=== PATIENT | male | born 2000 | race Hispanic/Latino ===

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

== ENCOUNTER 2019-01-14 19:07 | Inpatient (IN) | payer OTHER ==
[~2019-01-14] VITALS: Ht 165.1 cm; Wt 59.1 kg
[~2019-01-14 19:07] MED LIST changes: +TRAZ1TAB10 PO; -TRAZO50TA PO
[2019-01-14 20:20] LABS: HEMATOCRIT 46.2 % (42.0-52.0); HEMOGLOBIN 15.3 g/dl (13.5-17.5); MEAN CORPUSCULAR HEMOGLOBIN 30.7 pg (27.0-33.0); MEAN CORPUSCULAR HGB CONC 33.1 g/dl (32.0-36.5); MEAN CORPUSCULAR VOLUME 92.8 fl (80.0-96.0); PLATELET COUNT, AUTOMATED 247 10^3/uL (150-450); RED BLOOD COUNT 4.98 10^6/uL (4.30-6.10); WHITE BLOOD COUNT 6.1 10^3/uL (4.0-10.0)
[2019-01-14 20:39] LABS: AMPHETAMINES LEVEL URINE NEGATIVE (NEGATIVE); BARBITURATES URINE NEGATIVE (NEGATIVE); BENZODIAZEPINES URINE NEGATIVE (NEGATIVE); CANNABINOIDS URINE NEGATIVE (NEGATIVE); COCAINE METABOLITE URINE NEGATIVE (NEGATIVE); METHADONE URINE NEGATIVE (NEGATIVE); OPIATES URINE NEGATIVE (NEGATIVE); PHENCYCLIDINE URINE NEGATIVE (NEGATIVE)
[2019-01-14 20:51] LABS: ACETAMINOPHEN LEVEL < 2.0 UG/ML (10.0-30.0); ALBUMIN 4.2 GM/DL (3.2-5.2); ALT/SGPT 64 U/L (12-78); BILIRUBIN,DIRECT 0.3 MG/DL (0.0-0.2); BLOOD UREA NITROGEN 10 MG/DL (7-18); CALCIUM LEVEL 9.1 MG/DL (8.5-10.1); CARBON DIOXIDE LEVEL 26 MEQ/L (21-32); CHLORIDE LEVEL 109 MEQ/L (98-107); CREATININE FOR GFR 0.91 MG/DL (0.70-1.30); ETHYL ALCOHOL (ETHANOL) < 0.003 % (0.000-0.010); GLUCOSE, FASTING 76 MG/DL (70-100); POTASSIUM SERUM 4.3 MEQ/L (3.5-5.1); SALICYLATE LEVEL < 1.7 MG/DL (5.0-30.0); SODIUM LEVEL 141 MEQ/L (136-145); THYROID STIMULATING HORMONE 0.944 uIU/ML (0.463-3.98); TOTAL PROTEIN 7.2 GM/DL (6.4-8.2)
[2019-01-14] MEDS ORDERED: ACETAMINOPHEN TAB 650MG DOSE (2X325MG) PO PRN (21:45)
[2019-01-14] MEDS ORDERED: MOM 30ML SUSPENSION UDC PO PRN (21:45)
[2019-01-14] MEDS ORDERED: traZODone 50 MG TAB PO PRN (21:45)
[2019-01-14] MEDS ORDERED: MAALOX 30 ML SUSP *UDC PO PRN (21:45)
[2019-01-15 00:38] VITALS: BP 126/79
[2019-01-15 06:30] VITALS: BP 130/76
[2019-01-15] MEDS ORDERED: INFLUENZA QUADRIVALENT PF VACCINE 0.5ML SYRINGE (90686) IM ONE (09:00)
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
[2019-01-15 16:13] VITALS: BP 117/63
--- NOTE | 2019-01-15 20:09 | HPEPDOC ---
General Date of Admission Jan 14, 2019 at 21:32 Date of Service: Jan 15, 2019 Attending Physician: MESFIN DE OLIVEIRA MD Chief Complaint The patient is a 18-year-old male admitted with a reason for visit of Adjustment D/O. Source: Patient Exam Limitations: No limitations Timing/Duration: Week(s) Associated Symptoms: Other (Depressed mood with self harm behavior and SI) History of Present Illness 18 yo man, member of the with a history of depression and prior suicide attempts since the age of 14yo who presented to the ED with suicidal ideation with recent self harm behavior 2 weeks ago of cutting in the setting of recent break up and the relocation of the ex-significant other. He reports chronic SI that sometimes improves and sometimes worsens. He otherwise has no significant medical history and is physically healthy without complaints at this time. Home Medications No Active Prescriptions or Reported Meds Allergies Coded Allergies: No Known Allergies (Unverified , 01/14/19) Past Medical History Medical History Depression Family History Significant Family History: No pertinent family hx Social History * Smoker: non-smoker Alcohol: Denies Drugs: denies Recent Travel/Sick Contacts: Denies: Recent travel, Recent sick contacts A-FIB/CHADSVASC A-FIB History Current/History of A-Fib/PAF?: No Current PO Anticoag Therapy: No Age/Risk Factor Scoring CHADSVASC: CHADSVASC Response (Comments) Value Age Risk Factor Age < 65 years old 0 Gender Risk Factor Male 0 Hx of CHF No 0 Hx of HTN No 0 Hx of Stroke/TIA/or VTE No 0 Hx of Diabetes No 0 Hx of Vascular Disease No 0 Total 0 Treatment Treatment ordered: NONE Reason Anticoagulant not given: Not indicated/[id number] Review of Systems Constitutional: Denies: Chills, Fever, Night Sweats Eyes: Denies: Pain, Vision change ENT: Denies: Head Aches, Ear Pain, Dysphagia, Sinus Congestion, Post Nasal Drip , Sore Throat, Epistaxis, Other Symptoms Skin: Denies: Rash, Lesions, Breakdown Pulmonary: Denies: Dyspnea, Cough Cardiovascular: Denies: Chest Pain, Palpitations, Orthopnea, Paroxysmal Noc. Dyspnea, Lt Headedness Gastrointestinal: Denies: Nausea, Vomiting, Abdominal Pain, Diarrhea Genitourinary: Denies: Dysuria, Frequency, Incontinence, Retention Hematologic: Denies: Bruising, Bleeding Excessively Endocrine: Denies: Polydipsia, Polyphagia, Polyuria, Heat Intolerance, Cold Intolerance, Other Endocrine Sx Musculoskeletal: Denies: Neck Pain, Back Pain, Joint Pain, Muscle Pain, Spasms Neurological: Denies: Weakness, Numbness, Change in speech, Confusion Psych: Reports: Anxiety, Depression, Thoughts of Self Harm Physical Examination General Exam: Positive: Alert, No Acute Distress Eye Exam: Positive: PERRLA, Conjunctiva & lids normal, EOMI; Negative: Sclera icteric ENT Exam: Positive: Atraumatic, Mucous membr. moist/pink, Pharynx Normal Neck Exam: Positive: Supple; Negative: JVD, thyromegaly Chest Exam: Positive: Clear to auscultation, Normal air movement Heart Exam: Positive: Rate Normal, Regular Rhythm, Normal S1, Normal S2; Negative: Murmurs, Rubs Telemetry: Positive: No significant arrhythmia Abdomen Exam: Positive: Normal bowel sounds, Soft; Negative: Tenderness, Hepatospenomegaly Extremity Exam: Positive: Normal pulses; Negative: Clubbing, Cyanosis, Edema Skin Exam: Positive: Nl turgor and temperature, Lesion, Other skin issue (has doan on bilateral hands that he reports to be 2/2 to his cat and two larger 7cm vertical doan across wrists from self cutting that he reports to have done 2 weeks ago. No open skin or lesions.); Negative: Breakdown Neuro Exam: Positive: Normal Gait, Normal Speech, Cranial Nerves 3-12 NL, Reflexes 2+ Psych Exam: Positive: Oriented x 3, Other (Depressed mood, flat affect) Vital Signs Vital Signs Date Time Temp Pulse Resp B/P (MAP) Pulse Ox O2 Delivery O2 Flow Rate FiO2 01/15/19 16:13 98.9 78 16 117/63 (81) 01/15/19 06:30 Room Air 01/15/19 00:38 100 Laboratory Data Labs 24H Laboratory Tests 2 01/14/19 20:04: Nucleated Red Blood Cells % (auto) 0.0, Anion Gap 6L, Calcium Level 9.1, Total Bilirubin 1.0, Direct Bilirubin 0.3H, Aspartate Amino Transf (AST/SGOT) 53H, Alanine Aminotransferase (ALT/SGPT) 64, Alkaline Phosphatase 77, Total Protein 7.2, Albumin 4.2, Albumin/Globulin Ratio 1.40, Thyroid Stimulating Hormone (TSH) 0.944, Salicylates Level < 1.7L, Urine Opiates Screen NEGATIVE, Urine Methadone Screen NEGATIVE, Acetaminophen Level < 2.0L, Urine Barbiturates Screen NEGATIVE, Urine Phencyclidine Screen NEGATIVE, Urine Amphetamines Screen NEGATIVE, Urine Benzodiazepines Screen NEGATIVE, Urine Cocaine Metabolite Screen NEGATIVE, Urine Cannabinoids Screen NEGATIVE, Ethyl Alcohol Level < 0.003 CBC/BMP Laboratory Tests 01/14/19 20:04 Assessment/Plan 18 yo man with a long standing history of depression who presented with suicidal ideation with recent self harm acts in the setting of a recent breakup and relocation of ex-significant other with no physical complaints or history of recent illness with normal laboratory evaluation. Will sign off at this time and defer psychiatric evaluation and treatment to psychiatry. Thank you. Plan / VTE VTE Prophylaxis Ordered?: No VTE Exclusion Mechanical Proph: Low Risk for VTE VTE Exclusion Pharmacological: At Low Risk for VTE MESFIN DE OLIVEIRA MD Jan 15, 2019 20:09
[2019-01-16 06:32] VITALS: BP 120/58
--- NOTE | 2019-01-16 10:53 | MHDSPDOC ---
[facility] Discharge Summary Discharge Summary DATE OF ADMISSION: Jan 14, 2019 at 21:32 DATE OF DISCHARGE: 01/16/19 Discharge Qamar Méndez MRN: N/A Date of : N/A Date of Service: 01/16/2019 Diagnoses Adjustment disorder, mild. Borderline personality disorder. 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 Interestingly enough, he reports no major stressors but that he had had "thoughts" and wanted to come in so that he would be "safe." However, he is very ambivalent about trying medications and reports an "no therapies work on me." He reports symptoms consistent with borderline personality disorder with chronic emptiness, anger, difficulty with fiery relationships, poor identity, integration and mood variation that is precipitous. He reports that since he has come to the unit, his anxiety and insomnia has resolved well. He reports he does not sleep well when he has to go to the "field." He reports feeling that others are judgmental of him and that he does not "fit in." Consultants Involved Hospitalist/PCP screening Treatment and Progress On The Unit The patient was admitted to the inpatient unit after an abundance of caution. After observation, the patient was euthymic with a normal mental status exam. He requested to leave. He did not have any interest in medication after an extensive explanation of the risks and benefits. His history was highly consistent with a borderline personality disorder and likely there was a component of malingering as he did not want to remain in the field and reported that he wanted to have a "breather." The patient requested to leave and did not meet involuntary criteria. As he was denying suicidal or homicidal thoughts since his presentation on our unit, had a normal mental status exam and despite his chronic risk factors, in my clinical judgment he did not have enough dynamic risk factors suggested by further extension of an involuntary admission, he declined voluntary and thus was discharged in good magui. He was not interested in sleepy medication or any other types of treatment feeling that they were "not his problem." Discharge Assessment The patient is a 18-year-old young man with a history of borderline personality disorder and probably mild adjustment, presents after wishing to be outside of the field. After reportedly sleeping, he feels "better" and has no interest in any treatment with our program. He has a normal mental status exam consistent with a borderline personality disorder where stress levels are poorly handled and predispose him to adjustment problems. Mental Status Examination General: Well dressed with good hygiene Speech: Spontaneous and fluid Thought processes: Linear and logical MSK: Smooth and coordinated gait, no signs of tremors or involuntary orofacial movements Thought content: Future orientated Abstract reasoning, and computation: Intact Description of associations: Intact Description of abnormal or psychotic thoughts: Denies any suicidal or homicidal ideation. Denies any auditory or visual hallucinations. Does not appear to be responding to internal stimuli. Does not appear to be endorsing any bizarre or paranoid ideation. Judgment: Chronically limited Insight: Chronically limited Orientation: Alert and orientated 3 Cognition: Grossly normal Recent and remote memory: Intact Attention span and concentration: Intact Fund of knowledge: Adequate Mood: "okay" Affect: Euthymic with a full range Follow Up The social work team worked during the predischarge meeting in order to evaluate for further issues of lethality address them fully before discharge. They worked on safety planning with the patient's family members in order to ensure that the patient will have a safe and effective discharge. Time Spent The amount of time spent in the coordination of care for this patient was approximately 60 minutes. Monday Vital Signs/I&Os Vital Signs Date Time Temp Pulse Resp B/P (MAP) Pulse Ox O2 Delivery O2 Flow Rate FiO2 01/16/19 06:32 97.4 90 16 120/58 (78) 01/15/19 06:30 Room Air 01/15/19 00:38 100 Medications No Active Prescriptions or Reported Meds Allergies Coded Allergies: No Known Allergies (Unverified , 01/14/19) ZENOBIA WATKINS DO Jan 16, 2019 10:53
== END 2019-01-16 11:25 | disposition home or self-care (01) | DRG 882 ==
LOC: M ED 19:07 → M ED INP 21:32 → M PSY 23:54
PROVIDERS: ADMIT Psychiatry & Neurology Psychiatry; ATTEND Psychiatry & Neurology Addiction Medicine
DX: F43.20 Adjustment disorder, unspecified (principal); R45.851 Suicidal ideations; F60.3 Borderline personality disorder